=== PATIENT | male | born 1980 | race Two or more races ===

== ENCOUNTER → 2019-03-13 | Outpatient (CLI) | payer BC ==
[2019-03-13 17:49] LABS: BASO # 0.1 10^3/uL (0.0-0.2); EOS # 0.3 10^3/uL (0.0-0.5); EOS % 4.2 % (0.0-3.0); HEMATOCRIT 46.2 % (42.0-52.0); HEMOGLOBIN 15.2 g/dl (13.5-17.5); LYMPH # 2.3 10^3/uL (1.5-5.0); LYMPH % 28.3 % (24.0-44.0); MEAN CORPUSCULAR HGB CONC 32.9 g/dl (32.0-36.5); MEAN CORPUSCULAR VOLUME 85.2 fl (80.0-96.0); MONO # 0.8 10^3/uL (0.0-0.8); MONO % 10.2 % (0.0-5.0); NEUTROPHILS # 4.5 10^3/uL (1.5-8.5); NEUTROPHILS % 55.9 % (36.0-66.0); PLATELET COUNT, AUTOMATED 219 10^3/uL (150-450); RED BLOOD COUNT 5.42 10^6/uL (4.30-6.10); WHITE BLOOD COUNT 8.1 10^3/uL (4.0-10.0)
[2019-03-13 18:13] LABS: ALT/SGPT 68 U/L (12-78); BILIRUBIN,TOTAL 0.3 MG/DL (0.2-1.0); BLOOD UREA NITROGEN 19 MG/DL (7-18); CALCIUM LEVEL 8.7 MG/DL (8.5-10.1); CARBON DIOXIDE LEVEL 25 MEQ/L (21-32); CHLORIDE LEVEL 108 MEQ/L (98-107); CK-MB VALUE MASS 2.7 NG/ML (<3.6); CPK CREATINE PHOSPHOKINASE 401 U/L (39-308); CREATININE FOR GFR 1.31 MG/DL (0.70-1.30); GLOMERULAR FILTRATION RATE > 60.0 (>60); GLUCOSE, FASTING 81 MG/DL (70-100); LIPASE 186 U/L (73-393); MB/CK RELATIVE INDEX 0.67 (< OR =4); SODIUM LEVEL 142 MEQ/L (136-145); TOTAL PROTEIN 7.6 GM/DL (6.4-8.2); TROPONIN I < 0.02 NG/ML (< 0.10)
[2019-03-13 18:19] LABS: HEMOGLOBIN A1c 5.7 %
== END ==
LOC: M LAB 17:27
PROVIDERS: ATTEND Internal Medicine
DX: R53.83 Other fatigue (principal); K30 Functional dyspepsia

== ENCOUNTER → 2019-04-11 | Outpatient (CLI) | payer BC ==
[2019-04-11 19:40] LABS: BLOOD UREA NITROGEN 13 MG/DL (7-18); CALCIUM LEVEL 9.2 MG/DL (8.5-10.1); CARBON DIOXIDE LEVEL 29 MEQ/L (21-32); CHLORIDE LEVEL 104 MEQ/L (98-107); CHOLESTEROL LEVEL 206 MG/DL (<200); CHOLESTEROL RISK RATIO 5.024 (<5); CPK CREATINE PHOSPHOKINASE 717 U/L (39-308); CREATININE FOR GFR 1.39 MG/DL (0.70-1.30); FERRITIN 93 NG/ML (26-388); FREE T4 1.22 NG/DL (0.76-1.46); GLOMERULAR FILTRATION RATE > 60.0 (>60); GLUCOSE, FASTING 85 MG/DL (70-100); HDL CHOLESTEROL 41 MG/DL (>40); IRON (FE) 77 UG/DL (65-175); LDL CHOLESTEROL 132 MG/DL (<100); NON-HDL-C 165 MG/DL; PERCENT SATURATION 18.3 % (19.7-50.0); POTASSIUM SERUM 4.2 MEQ/L (3.5-5.1); SODIUM LEVEL 139 MEQ/L (136-145); TOTAL IRON BINDING CAPACITY 420 UG/DL (250-450); TRIGLYCERIDES LEVEL 165 MG/DL (<150)
[2019-04-11 19:42] LABS: FOLATE 23.8 NG/ML; TOTAL 25(OH) VITAMIN D 24.2 NG/ML (30.0-100.0); VITAMIN B12 LEVEL 1552 PG/ML
== END ==
LOC: M LAB 18:36
PROVIDERS: ATTEND Psychiatry & Neurology Neurology
DX: E07.9 Disorder of thyroid, unspecified (principal); E78.5 Hyperlipidemia, unspecified; R20.0 Anesthesia of skin; E55.9 Vitamin D deficiency, unspecified; G72.9 Myopathy, unspecified; E61.1 Iron deficiency

== ENCOUNTER → 2019-04-15 | Outpatient (CLI) | payer BC ==
--- NOTE | 2019-04-15 14:08 | REPPI ---
Chest x-ray: Two views. History: Pneumonia. History of cough. Comparison study: No comparison study . Findings: The lungs are well inflated and free of infiltrate. The pleural angles are sharp. The heart size is normal. Pulmonary vasculature is not increased. No significant bony abnormality is seen. Impression: Negative chest x-ray. Electronically Signed by Justin Solorzano MD 04/15/2019 02:00 P
== END ==
LOC: M PLAIMG 13:52
PROVIDERS: ATTEND Psychiatry & Neurology Neurology
DX: J18.9 Pneumonia, unspecified organism (principal)

== ENCOUNTER → 2019-05-09 | Outpatient (REF) | payer BC ==
[2019-05-09 14:12] LABS: BLOOD UREA NITROGEN 11 MG/DL (7-18); CALCIUM LEVEL 9.7 MG/DL (8.5-10.1); CARBON DIOXIDE LEVEL 31 MEQ/L (21-32); CHLORIDE LEVEL 104 MEQ/L (98-107); CPK CREATINE PHOSPHOKINASE 364 U/L (39-308); CREATININE FOR GFR 1.39 MG/DL (0.70-1.30); GLOMERULAR FILTRATION RATE > 60.0 (>60); GLUCOSE, FASTING 81 MG/DL (70-100); POTASSIUM SERUM 4.8 MEQ/L (3.5-5.1); SODIUM LEVEL 139 MEQ/L (136-145)
== END ==
LOC: M LABNEURO 10:09
PROVIDERS: ATTEND Psychiatry & Neurology Neurology
DX: R05 Cough (principal)

== ENCOUNTER → 2019-09-29 | Outpatient (CLI) | payer BC | LOC: M LABSMTC 09:35 | PROVIDERS: ATTEND Pediatrics | DX: Z11.59 Encounter for screening for other viral diseases (principal) | CPT/HCPCS: C9803; U0002 ==

== ENCOUNTER → 2019-11-02 | Outpatient (CLI) | payer BC | LOC: M LABSMTC 09:41 | PROVIDERS: ATTEND Pediatrics | DX: Z03.818 Encounter for observation for suspected exposure to other biological agents ruled out (principal); Z11.59 Encounter for screening for other viral diseases | CPT/HCPCS: C9803; U0002 ==

== ENCOUNTER → 2020-02-01 | Outpatient (CLI) | payer SELFPAY | LOC: M LABSMTC 13:10 | PROVIDERS: ATTEND Pediatrics | DX: Z20.828 Contact with and (suspected) exposure to other viral communicable diseases (principal) ==

== ENCOUNTER → 2020-02-15 | Outpatient (CLI) | payer SELFPAY | LOC: M LABSMTC 09:49 | PROVIDERS: ATTEND Pediatrics | DX: Z11.59 Encounter for screening for other viral diseases (principal) ==

== ENCOUNTER → 2020-02-29 | Outpatient (CLI) | payer BC ==
--- NOTE | 2020-02-29 09:13 | REPPI ---
INDICATION: LEFT FOOT PAIN COMPARISON: Left foot TECHNIQUE: AP, lateral, bilateral oblique views . FINDINGS: The osseous structures and joint spaces are intact and normal. There is no evidence for acute fracture or dislocation. Surrounding soft tissues are unremarkable. No subcutaneous emphysema or radiodense foreign body. IMPRESSION: Age-appropriate left foot radiograph series. No acute fracture or dislocation. <Electronically signed by Ja Bryan > 02/29/20 0914
== END ==
LOC: M PLAIMG 08:48
PROVIDERS: ATTEND Psychiatry & Neurology Neurology
DX: M79.672 Pain in left foot (principal)

== ENCOUNTER 2021-07-07 14:12 | Emergency (ER) | payer BC | END 2021-07-08 01:43 | disposition left against medical advice (07) | LOC: EDBD 14:12 → M ED 14:12 | DX: Z53.21 Procedure and treatment not carried out due to patient leaving prior to being seen by health care provider (principal) ==